=== PATIENT | female | born 1940 | race Caucasian/White ===

== ENCOUNTER 2019-01-06 11:00 | Emergency (ER) | payer OTHER ==
[~2019-01-06] VITALS: Ht 170.2 cm; Wt 49.9 kg
[2019-01-06] MEDS ORDERED: SODIUM CHLORIDE 0.9% 1,000 ML IV ONE (11:08)
[2019-01-06 12:00] LABS: Basophils # (auto) 0.1 uL; Basophils % (auto) 0.7 % (0.0-2.0); Monocytes # (auto) 0.7 uL; Neutrophils # (auto) 5.7 uL; White Blood Cell 7.8 10^3/uL (4.4-10.8)
[2019-01-06 12:02] LABS: Eosinophils # (auto) 0.4 uL; Eosinophils % (auto) 4.5 % (0.0-7.0); Hematocrit 32.5 % (36.0-46.0); Hemoglobin 10.4 g/dL (12.2-16.2); Lymphocytes % (auto) 13.2 % (10.0-50.0); Mean Corpuscular Hemoglobin 27.1 pg (28.0-32.0); Mean Corpuscular Hgb Conc. 31.9 g/dL (32.0-36.0); Monocytes % (auto) 8.3 % (0.0-12.0); Neutrophils % (auto) 73.3 % (37.0-80.0); Platelet Count (auto) 438 10^3/uL (140-450); Red Blood Cells 3.83 10^6/uL (4.0-5.20)
[2019-01-06 13:06] LABS: Urine Bacteria MANY /hpf (None Seen); Urine Blood 1+ /uL (Negative); Urine Mucus FEW (None Seen); Urine Specific Gravity 1.008 (1.001-1.035); Urine WBC 240 /hpf (0 - 5); Urine WBC Clumps PRESENT /hpf (None Seen)
[2019-01-06 13:10] LABS: Albumin 2.2 g/dL (3.4-5.0); BUN/Creatinine Ratio 18.5; Calcium 8.5 mg/dL (8.5-10.1); Potassium 3.7 mmol/L (3.5-5.1)
[2019-01-06 13:12] LABS: Partial Thromboplastin Time 24.4 sec (23.64-32.05)
[2019-01-06 13:13] LABS: Bilirubin, Total 0.4 mg/dL (0.2-1.0); Total Protein 6.6 g/dL (6.4-8.2)
[2019-01-06] MEDS ORDERED: SULFAMETHOX W/TRIMETH(800/160MG) DS TAB PO ONE (13:45)
[2019-01-06 14:21] VITALS: BP 113/47
== END 2019-01-06 15:00 | disposition home or self-care (01) ==
LOC: ER 11:00 → EDBD 11:00 → ER 15:00
DX: S00.81XA Abrasion of other part of head, initial encounter (principal); N39.0 Urinary tract infection, site not specified; Z90.710 Acquired absence of both cervix and uterus; W18.30XA Fall on same level, unspecified, initial encounter; Y93.89 Activity, other specified; Y92.89 Other specified places as the place of occurrence of the external cause; Y99.8 Other external cause status
CPT/HCPCS: 36415; 70450; 71045; 80053; 81001; 84484; 85025; 85610; 85730; 93005

== ENCOUNTER 2019-04-27 15:57 | Emergency (ER) | payer BC, MEDICARE, OTHER ==
[~2019-04-27] VITALS: Ht 167.6 cm; Wt 65.8 kg
[2019-04-27 16:31] LABS: Basophils # (auto) 0 uL; Basophils % (auto) 0.2 % (0.0-2.0); Eosinophils # (auto) 0 uL; Eosinophils % (auto) 0.1 % (0.0-7.0); Hematocrit 34.8 % (36.0-46.0); Hemoglobin 11.1 g/dL (12.2-16.2); Lymphocytes # (auto) 0.4 uL; Lymphocytes % (auto) 3.3 % (10.0-50.0); Mean Corpuscular Hemoglobin 26.9 pg (28.0-32.0); Mean Corpuscular Hgb Conc. 31.8 g/dL (32.0-36.0); Mean Corpuscular Volume 84.4 fL (80.0-100.0); Monocytes # (auto) 0.5 uL; Monocytes % (auto) 3.7 % (0.0-12.0); Neutrophils # (auto) 12.5 uL; Neutrophils % (auto) 92.7 % (37.0-80.0); Platelet Count (auto) 323 10^3/uL (140-450); Red Blood Cells 4.12 10^6/uL (4.0-5.20); Red Cell Distribution Width 19.6 % (11.8-14.3); White Blood Cell 13.5 10^3/uL (4.4-10.8)
[2019-04-27 16:47] LABS: Albumin 2.2 g/dL (3.4-5.0); Anion Gap 6 (5-15); Blood Urea Nitrogen 14 mg/dL (7-18); Calcium 8.2 mg/dL (8.5-10.1); Carbon Dioxide 23 mmol/L (21-32); Chloride 110 mmol/L (98-107); Glucose 111 mg/dL (74-106); Potassium 3.8 mmol/L (3.5-5.1); Sodium 139 mmol/L (136-145)
[2019-04-27 16:53] LABS: Alanine Aminotransferase 6 U/L (13-56); Alkaline Phosphatase 61 U/L (45-117); Aspartate Aminotransferase 11 U/L (15-37); BUN/Creatinine Ratio 26.4; Bilirubin, Total 0.5 mg/dL (0.2-1.0); GFR African American 143 mL/min; GFR Non-African American 118 mL/min; Total Protein 6.5 g/dL (6.4-8.2)
[2019-04-27] MEDS ORDERED: SODIUM CHLORIDE 0.9% 1,000 ML IV ONE ×2 (17:04)
[2019-04-27] MEDS ORDERED: PIPERACILLIN-TAZOB 3.375GM 100 ML IV ONE (17:15)
[2019-04-27 21:37] VITALS: BP 105/38
[2019-04-27] MEDS ORDERED: SOD CHL 0.45% 1,000 ML IV ONE (22:00)
[2019-04-27] MEDS ORDERED: LEVOFLOXACIN 750MG 150 ML IV ONE (22:00)
[2019-04-28 00:15] LABS: Urine Bacteria FEW /hpf (None Seen); Urine Blood 2+ /uL (Negative); Urine Mucus FEW (None Seen); Urine Specific Gravity 1.035 (1.001-1.035); Urine WBC 203 /hpf (0 - 5); Urine WBC Clumps PRESENT /hpf (None Seen)
== END 2019-04-28 00:05 | disposition home or self-care (01) ==
LOC: EDBD 15:57 → ER 16:09
DX: A41.9 Sepsis, unspecified organism (principal); R00.0 Tachycardia, unspecified; E86.0 Dehydration; N39.0 Urinary tract infection, site not specified; E43 Unspecified severe protein-calorie malnutrition; J44.9 Chronic obstructive pulmonary disease, unspecified; Z68.23 Body mass index [BMI] 23.0-23.9, adult; Z90.710 Acquired absence of both cervix and uterus
CPT/HCPCS: 36415; 71045; 74176; 80053; 81001; 83605; 84484; 85025; 87040; 87086; 87088; 87186; 93005; 96365; 96366; 96367; 99284; J1956; J2543; J7030

== ENCOUNTER 2019-09-25 11:08 | Emergency (ER) | payer BC ==
[~2019-09-25] VITALS: Ht 157.5 cm; Wt 52.2 kg
[2019-09-25 11:37] LABS: Basophils # (auto) 0.1 10 ^3/uL (0-0.2); Basophils % (auto) 0.8 % (0.0-2.0); Eosinophils # (auto) 0.1 10 ^3/uL (0-0.8); Eosinophils % (auto) 1.6 % (0.0-7.0); Hematocrit 37.1 % (36.0-46.0); Hemoglobin 11.9 g/dL (12.2-16.2); Lymphocytes # (auto) 0.7 10 ^3/uL (0.4-5.4); Lymphocytes % (auto) 8.7 % (10.0-50.0); Mean Corpuscular Hemoglobin 27.6 pg (28.0-32.0); Mean Corpuscular Volume 86.2 fL (80.0-100.0); Monocytes # (auto) 0.6 10 ^3/uL (0-1.3); Monocytes % (auto) 7.1 % (0.0-12.0); Neutrophils # (auto) 6.6 10 ^3/uL (1.6-8.6); Neutrophils % (auto) 81.8 % (37.0-80.0); Platelet Count (auto) 291 10^3/uL (140-450); Red Cell Distribution Width 18.7 % (11.8-14.3); White Blood Cell 8.1 10^3/uL (4.4-10.8)
[2019-09-25 11:58] LABS: Albumin 2.6 g/dL (3.4-5.0); Anion Gap 5 (5-15); Blood Urea Nitrogen 16 mg/dL (7-18); Calcium 8.7 mg/dL (8.5-10.1); Carbon Dioxide 26 mmol/L (21-32); Chloride 107 mmol/L (98-107); Glucose 109 mg/dL (74-106); Sodium 138 mmol/L (136-145)
[2019-09-25 12:04] LABS: Alanine Aminotransferase 11 U/L (13-56); Alkaline Phosphatase 44 U/L (45-117); Aspartate Aminotransferase 16 U/L (15-37); BUN/Creatinine Ratio 25.4; Bilirubin, Total 0.4 mg/dL (0.2-1.0); GFR African American 117 mL/min; GFR Non-African American 97 mL/min; Total Protein 6.8 g/dL (6.4-8.2)
[2019-09-25 12:20] VITALS: BP 116/45
[2019-09-25 13:27] LABS: Urine Amorphous Crystal FEW /hpf (None Seen); Urine Bacteria FEW /hpf (None Seen); Urine Blood TRACE /uL (Negative); Urine Mucus FEW (None Seen); Urine Specific Gravity 1.017 (1.001-1.035); Urine WBC 243 /hpf (0 - 5); Urine WBC Clumps PRESENT /hpf (None Seen)
[2019-09-25 13:37] LABS: Urine Budding Yeast Few /hpf (None Seen)
== END 2019-09-25 14:39 | disposition home or self-care (01) ==
LOC: ER 11:08 → EDBD 11:08 → ER 14:39
DX: J44.1 Chronic obstructive pulmonary disease with (acute) exacerbation (principal); G45.9 Transient cerebral ischemic attack, unspecified; I49.3 Ventricular premature depolarization; F17.210 Nicotine dependence, cigarettes, uncomplicated
CPT/HCPCS: 36415; 70450; 71045; 80053; 81001; 84484; 85025; 93005

== ENCOUNTER 2021-05-04 13:35 | Observation (INO) | payer BC ==
[~2021-05-04] VITALS: Ht 165.1 cm; Wt 59.0 kg
[2021-05-04] MEDS ORDERED: SODIUM CHLORIDE 0.9% 500 ML IV ONE (14:15)
[2021-05-04 16:35] LABS: Basophils # (auto) 0 10 ^3/uL (0-0.2); Eosinophils # (auto) 0 10 ^3/uL (0-0.8); Hematocrit 21.8 % (36.0-46.0); Mean Corpuscular Hemoglobin 25.7 pg (28.0-32.0); Monocytes # (auto) 0.5 10 ^3/uL (0-1.3); Neutrophils # (auto) 6.5 10 ^3/uL (1.6-8.6)
[2021-05-04 16:37] LABS: Basophils % (auto) 0.3 % (0.0-2.0); Eosinophils % (auto) 0.2 % (0.0-7.0); Lymphocytes # (auto) 0.7 10 ^3/uL (0.4-5.4); Lymphocytes % (auto) 9.6 % (10.0-50.0); Mean Corpuscular Hgb Conc. 31.7 g/dL (32.0-36.0); Mean Corpuscular Volume 81.2 fL (80.0-100.0); Monocytes % (auto) 6.6 % (0.0-12.0); Neutrophils % (auto) 83.3 % (37.0-80.0); Red Blood Cells 2.69 10^6/uL (4.0-5.20); Red Cell Distribution Width 16.6 % (11.8-14.3); White Blood Cell 7.8 10^3/uL (4.4-10.8)
[2021-05-04 16:50] LABS: INR 1.18 (0.9-1.15); Partial Thromboplastin Time 30.2 sec (23.6-33.0)
[2021-05-04 16:52] LABS: Calcium 7.8 mg/dL (8.5-10.1)
[2021-05-04 16:53] LABS: Hemoglobin 6.9 g/dL (12.2-16.2)
[2021-05-04 16:56] LABS: Bilirubin, Total 0.3 mg/dL (0.2-1.0); Total Protein 5.3 g/dL (6.4-8.2)
[2021-05-04] MEDS ORDERED: NOREPINEPHRINE 8 MG/250ML KIT 250 ML IV ONE (17:29)
[2021-05-04] MEDS ORDERED: NOREPINEPHRINE 8 MG/250ML KIT 250 ML IV SCH (17:45)
[2021-05-04 20:55] VITALS: BP 141/58
[2021-05-04 21:10] VITALS: BP 135/61
[2021-05-04] MEDS ORDERED: MORPHINE SULFATE INJECTION 2 MG/ML SYRG IV PRN (21:15)
[2021-05-04] MEDS ORDERED: SOD CHL 0.45% 1,000 ML IV ONE (21:15)
[2021-05-04] MEDS ORDERED: NITROGLYCERIN 0.4 MG SL TAB SL PRN (21:15)
[2021-05-04] MEDS ORDERED: ALBUTEROL SULF 2.5 MG/0.5ML(0.5%) NEB SOLN NEB PRN (21:45)
[2021-05-04] MEDS ORDERED: IPRATROPIUM BROM 0.5 MG/2.5ML INH SOL NEB PRN (21:45)
[2021-05-04 23:40] VITALS: BP 167/74
[2021-05-05 07:45] LABS: Basophils # (auto) 0.2 10 ^3/uL (0-0.2); Eosinophils # (auto) 0 10 ^3/uL (0-0.8); Hematocrit 24.6 % (36.0-46.0); Hemoglobin 8.1 g/dL (12.2-16.2); Lymphocytes % (auto) 9.8 % (10.0-50.0); Mean Corpuscular Hemoglobin 27.5 pg (28.0-32.0); Mean Corpuscular Hgb Conc. 33.1 g/dL (32.0-36.0); Mean Corpuscular Volume 83.1 fL (80.0-100.0); Monocytes # (auto) 1.2 10 ^3/uL (0-1.3); Monocytes % (auto) 11.9 % (0.0-12.0); Neutrophils # (auto) 7.7 10 ^3/uL (1.6-8.6); Neutrophils % (auto) 76.3 % (37.0-80.0); Red Blood Cells 2.96 10^6/uL (4.0-5.20); Red Cell Distribution Width 16.7 % (11.8-14.3); White Blood Cell 10.1 10^3/uL (4.4-10.8)
[2021-05-05 07:57] LABS: Potassium 4.8 mmol/L (3.5-5.1)
[2021-05-05 08:06] LABS: Albumin 1.9 g/dL (3.4-5.0); BUN/Creatinine Ratio 82.1; Bilirubin, Total 0.3 mg/dL (0.2-1.0); Calcium 7.5 mg/dL (8.5-10.1); Total Protein 5.3 g/dL (6.4-8.2)
[2021-05-05 09:24] VITALS: BP 150/84
[2021-05-05] MEDS ORDERED: ALBUTEROL SULF HFA 90MCG INH 200DOSE IN SCH (14:00)
== END 2021-05-05 10:12 | disposition home or self-care (01) ==
LOC: ER 13:35 → EDBD 13:35 → EDUNIT# 13:35 → TELE 21:12
PROVIDERS: ADMIT Internal Medicine; ATTEND Internal Medicine
DX: U07.1 COVID-19 (principal); D64.9 Anemia, unspecified; I95.9 Hypotension, unspecified; J44.9 Chronic obstructive pulmonary disease, unspecified; R04.0 Epistaxis; F17.210 Nicotine dependence, cigarettes, uncomplicated; Z85.038 Personal history of other malignant neoplasm of large intestine; Z90.710 Acquired absence of both cervix and uterus; Z79.899 Other long term (current) drug therapy
CPT/HCPCS: 36415; 36430; 71045; 80053; 85025; 85610; 85730; 86850; 86900; 86901; 86920; 87426; 96361; 96365; 96366; 99291; G0378; P9016

== ENCOUNTER 2021-05-10 10:12 | Emergency (ER) | payer BC ==
[~2021-05-10] VITALS: Ht 160 cm; Wt 46.3 kg
[2021-05-10 11:39] LABS: Basophils # (auto) 0 10 ^3/uL (0-0.2); Basophils % (auto) 0.3 % (0.0-2.0); Eosinophils # (auto) 0 10 ^3/uL (0-0.8); Eosinophils % (auto) 0.2 % (0.0-7.0); Hemoglobin 7.2 g/dL (12.2-16.2); Lymphocytes # (auto) 0.5 10 ^3/uL (0.4-5.4); Lymphocytes % (auto) 8.8 % (10.0-50.0); Mean Corpuscular Hgb Conc. 32.7 g/dL (32.0-36.0); Mean Corpuscular Volume 82.8 fL (80.0-100.0); Monocytes # (auto) 0.4 10 ^3/uL (0-1.3); Monocytes % (auto) 7.8 % (0.0-12.0); Neutrophils # (auto) 4.2 10 ^3/uL (1.6-8.6); Neutrophils % (auto) 82.9 % (37.0-80.0); Nucleated Red Blood Cells % 0.2 %; Red Blood Cells 2.66 10^6/uL (4.0-5.20); Red Cell Distribution Width 17.3 % (11.8-14.3); White Blood Cell 5.1 10^3/uL (4.4-10.8)
[2021-05-10 12:09] LABS: Albumin 1.7 g/dL (3.4-5.0); Calcium 7.4 mg/dL (8.5-10.1); Potassium 4.1 mmol/L (3.5-5.1)
[2021-05-10 12:12] LABS: Bilirubin, Total 0.2 mg/dL (0.2-1.0); Total Protein 5.2 g/dL (6.4-8.2)
[2021-05-10] MEDS ORDERED: ALBUTEROL SULF 2.5 MG/0.5ML(0.5%) NEB SOLN NEB ONE (13:45)
[2021-05-10] MEDS ORDERED: DexAMETHasone SOD PHOS 10MG/1ML VIAL INJ IV ONE (13:45)
[2021-05-10] MEDS ORDERED: IPRATROPIUM BROM 0.5 MG/2.5ML INH SOL NEB ONE (13:45)
[2021-05-10] MEDS ORDERED: ASPirin 325 MG TAB PO ONE (13:45)
[2021-05-10 16:49] VITALS: BP 110/64
== END 2021-05-10 17:01 | disposition home or self-care (01) ==
LOC: EDUNIT# 10:12 → EDBD 10:12 → ER 10:12
DX: U07.1 COVID-19 (principal); J44.9 Chronic obstructive pulmonary disease, unspecified; J18.9 Pneumonia, unspecified organism; D64.9 Anemia, unspecified; F17.210 Nicotine dependence, cigarettes, uncomplicated
CPT/HCPCS: 36415; 71045; 80053; 84484; 85025; 93005; 96374; 99285; J1100